=== PATIENT | male | born 1940 | race Caucasian/White ===

== ENCOUNTER 2025-01-29 06:22 | Day surgery (SDC) | payer MEDICARE ==
[2025-01-28 08:41] LABS: MEAN PLATELET VOLUME 7.2 FL (7.4-10.4); RED CELL DISTRIBUTION WIDTH 14.5 % (11.5-14.5)
[2025-01-28 08:48] LABS: APTT 25 SECONDS (22-32); CREATININE 1.54 MG/DL (0.60-1.10); INR 1.0 INR; TOTAL CARBON DIOXIDE 30.4 MMOL/L (24-32); eGFR 43 ML/MIN
[~2025-01-29] VITALS: Ht 167.6 cm; Wt 59.5 kg
[2025-01-29] VITALS (14 sets, daily range): BP systolic 119–159; BP diastolic 62–87; PULSE 46–65; RESP 9–19; TEMP 97.8; O2SAT 95–99
--- NOTE | 2025-01-29 06:55 | ELECTROCARDIOGRAPH REPORT ---
[facility] Test Date: 2025-01-29 Test Time: 06:52:56 Pat Name: ISAC CLARKE Department: [facility] Patient ID: 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 Reading MD: Dr. LANCE Mosqueda Measurements Intervals [place] Rate: 64 P: 75 PA: 226 QRS: -79 QRSD: 144 T: 25 QT: 456 QTc: 471 Interpretive Statements Sinus rhythm Atrial premature complex Prolonged PA interval RBBB and LAFB Electronically Signed On 01-29-2025 19:06:[address] LANCE Mosqueda Please click the below link to view image of tracing.
[2025-01-29] MEDS ORDERED: midazolam 1 mg/ML 2ml injection ONE (07:31)
[2025-01-29] MEDS ORDERED: verapamil 2.5 mg/ml inj IV ONE (07:31)
[2025-01-29] MEDS ORDERED: LIDOcaine 1% (10mg/ml) 2ml vial ONE (07:31)
[2025-01-29] MEDS ORDERED: iohexol 350 MG/ML 50ML vial IV ONE (07:32)
[2025-01-29] MEDS ORDERED: fentaNYL/PF 50MCG/1 ML 2ML syringe ONE (07:32)
[2025-01-29] MEDS ORDERED: nitroGLYCERIN 500mcg/5mL D5W 5 ML IV ONE (07:32)
[2025-01-29] MEDS ORDERED: heparin 1,000unit/ml 10ml vial 10 ML ONE (07:32)
[2025-01-29] MEDS ORDERED: POLY15DR66 EACHEYE (07:54)
[2025-01-29] MEDS ORDERED: CHOL100034 PO (07:54)
[2025-01-29] MEDS ORDERED: [UNRECOGNIZED DRUG - CODE] PO (07:54)
[2025-01-29] MEDS ORDERED: CYAN-34 PO (07:54)
[2025-01-29] MEDS ORDERED: ASCO10004 PO (07:54)
[2025-01-29] MEDS ORDERED: ROSU40TA89 PO (07:54)
[2025-01-29] MEDS: sodium bicarbonate 1meq/ml syr 150 ML in dextrose 5%-water 1,000 ML IV ONE (08:02)
[2025-01-29] MEDS ORDERED: LIDOcaine 1% 30ml preserv. free vial ONE (08:29)
[2025-01-29 09:55] LABS: ISTAT HGB ART 12.6 g/dl (14.0-17.9); ISTAT Hct ART 37 %PCV (42-52); ISTAT O2 SATURATION ARTERIAL 98 % (95-98); ISTAT SOURCE BLNK
--- NOTE | 2025-01-29 12:59 | CARDIOLOGY REPORT ---
DATE OF SERVICE: 01/29/2025 DICTATING PHYSICIAN: LANCE Mosqueda MD CARDIAC CATHETERIZATION GENDER: Male. AGE: 84 years. HEIGHT: 167 cm WEIGHT: 59.5 kg. BODY SURFACE AREA: 1.67 m2 INDICATION: The patient is an 84-year-old male with a history of exertional fatigue and tiredness, hyperlipidemia, and aortic stenosis. His aortic stenosis is being watched for some time and the patient is reasonably active and his echocardiogram from 01/07/2025 showed that severe calcific aortic stenosis, EF of 70-75% and normal flow, low gradient aortic stenosis. Back in 09/2024, there peak/mean gradient of 61/35 mmHg, aortic valve 0.73 cm2; however, the patient does not have any angina, CHF, or syncopal episodes. After discussing risks, benefits, alternative options, the patient prefers to have definitive coronary angiography. Risks, benefits, and alternative options discussed. Informed consent obtained. PROCEDURE DONE: Ultrasound-guided right radial artery visualization and access. Access site hemostasis secured with right radial band. The patient tolerated the procedure well. The patient underwent right heart catheterization in the right femoral venous approach. Post-procedure, the access site hemostasis secured with manual compression. The patient tolerated the procedure well. COMPLICATIONS: None. PROCEDURES DONE: * Ultrasound-guided right radial artery visualization and access. * Right heart catheterization. * Left heart catheterization. * LVG. * Coronary cineangiography. * Conscious sedation for 45 minutes. FINDINGS: HEMODYNAMICS: Aortic systolic 109, diastolic 53, mean 74 mmHg. LVEDP of 15 mmHg. There is a mean gradient of 27 mmHg across the aortic valve. Aortic valve area was 0.75 cm2. Right atrial mean 10 mmHg, RV 48/7 mmHg, pulmonary capillary 7 mmHg, PA pressure 24/10 mmHg. Aortic oxygen saturation 98%, pulmonary artery 78%. Cardiac output by thermodilution method is 12.9 cm2 with cardiac output 2.97 L/min. Cardiac index 1.78 L/min/m2. LEFT VENTRICULOGRAM: Overall left ventricular systolic function is normal. LV ejection fraction of 80%. CORONARY CINEANGIOGRAPHY: Left main coronary artery is large-caliber vessel, engaged with JL4 catheter from right radial approach with minimal luminal irregularities. LAD is a medium caliber vessel arising at the bifurcation of left main coronary artery, courses through the anterior interventricular groove and ends by wrapping around the apex. There are small diagonals of less than 2 mm in diameter. Proximal mid LAD has areas of 20% narrowing. Ramus intermedius is a 2 mm caliber with minimal luminal irregularities. Circumflex artery is a medium caliber, arising at the bifurcation of the left main coronary artery, course through the left AV groove. OM1 and OM2 are 2.25 mm caliber with minimal luminal irregularity. Proximal circumflex artery is very tortuous. OM3 is a 2 mm caliber with minimal luminal irregularities. Right coronary artery is a medium caliber, dominant vessel arising from the right aortic sinus, courses through the right AV groove, and ends at the posterior crux by dividing into PDA and a posterolateral branch. There is about 63% eccentric narrowing at the junction of the middle one-third and distal one-third. There is about 30% narrowing in the distal RCA. This 60% narrowing is interrogated in multiple views and found to be nonobstructive. IMPRESSION: An 84-year-old male with LV ejection fraction of 75%. LVEDP of 15 mmHg. There is a mean gradient of 27 mmHg across the aortic valve with aortic valve 0.75 cm2. Pulmonary capillary wedge pressure was 7 mmHg. PA pressure 24/10 mmHg. Left main normal. Proximal mid LAD 20% narrowing. Circumflex with mild luminal irregularities. Dominant RCA with 60% narrowing at the junction of the middle one-third and distal one-third and 30% narrowing of the very distal RCA. RECOMMENDATIONS: Recommend continued aggressive coronary risk factor modification, namely low-fat, low cholesterol diet, maintaining ideal body weight, keeping LDL less than 70 mg percent and regular exercise program. the option of further evaluation for TAVR versus continued observation. Risks, benefits, and alternative options were discussed with the patient. Since he is not having significant symptoms, the patient wants to wait.. The patient will be reevaluated with an echocardiogram in 3 months. LANCE Mosqueda MD TID: [id number] RECEIPT: [id number] GUILLERMINA/ARNIE/MONIKA cc: Mamadou King MD [facility]
[2025-01-30 09:19] LABS: ISTAT HGB MIX 12.6 g/dl (14.0-17.9); ISTAT Hct MIX 37 %PCV (42-52); ISTAT O2 SATURATION MIX VENOUS 70 % (60-80); ISTAT SOURCE BLNK
== END 2025-01-29 14:00 | disposition home or self-care (01) ==
LOC: SSTAY O 06:22
PROVIDERS: ATTEND Internal Medicine Cardiovascular Disease
DX: I35.0 Nonrheumatic aortic (valve) stenosis (principal); I49.1 Atrial premature depolarization; I45.2 Bifascicular block; I25.10 Atherosclerotic heart disease of native coronary artery without angina pectoris; E78.5 Hyperlipidemia, unspecified; Z79.899 Other long term (current) drug therapy
CPT/HCPCS: 36415; 76937; 80048; 82803; 85014; 85025; 85610; 85730; 93005; 93460; 99152; 99153; A6258; A6402; C1725; C1751; C1769; C1894; J1644; J2003; J2250; J3010; J3490; J7030; J7070; Q0163; Q9967